=== PATIENT | male | born 1965 | race Two or more races ===

== ENCOUNTER 2018-01-29 17:49 | Emergency (ER) | payer SELFPAY ==
[2018-01-29] MEDS: HYDROcodone/APAP 5/325MG 1 TAB TABLET PO (18:35)
== END 2018-01-29 19:15 | disposition home or self-care (01) ==
LOC: ER 17:49
DX: S82.832A Other fracture of upper and lower end of left fibula, initial encounter for closed fracture (principal); X50.1XXA Overexertion from prolonged static or awkward postures, initial encounter; Y93.89 Activity, other specified; Y99.8 Other external cause status; Y92.098 Other place in other non-institutional residence as the place of occurrence of the external cause
CPT/HCPCS: 29515; 73610; 99284